=== PATIENT | female | born 1965 | race Caucasian/White ===

== ENCOUNTER 2024-03-14 11:43 | Day surgery (SDC) | payer OTHER, SELFPAY ==
[2024-03-10 09:52] VITALS: BMI 47.0
--- NOTE | 2024-03-13 20:47 | DI.RAD.S_ITS ---
PROCEDURE: XR KNEE LT 1TO2V INDICATIONS: tka TECHNIQUE: 2 view(s) of the knee acquired. COMPARISON: [facility], CR, XR BONE LENGTH SCANOGRAM, 03/03/2024, 13:38. [facility], CR, XR KNEE 4+ VIEWS LEFT, 01/07/2024, 8:05. FINDINGS: Bones: Patient is status post knee joint arthroplasty. Hardware components are in expected positions. Visualized bony structures are intact. Soft tissues: Overlying postoperative changes are noted. IMPRESSION: Expected post-operative appearance of a knee arthroplasty. Dictated by: Bcek Godwin M.D. on 03/14/2024 at 17:38 Approved by: Beck Godwin M.D. on 03/14/2024 at 17:39
[2024-03-14] VITALS (12 sets, daily range): BP systolic 131–177; BP diastolic 31–76; PULSE 60–71; RESP 14–18; TEMP 36.1–36.3; O2SAT 94–98; BMI 47.0
[2024-03-14] MEDS: LACTATED RINGERS 1,000 ML 42 ML IV ×2 (12:42→16:58)
[2024-03-14] MEDS: ACETAMINOPHEN 325 MG TABLET 975 MG PO (12:45)
[2024-03-14] MEDS: MELOXICAM 7.5 MG TABLET 15 MG PO (12:45)
--- NOTE | 2024-03-14 12:52 | PM.PREOP ---
Pre-operative Note Interval Note History & Physical reviewed/Exam performed by Physician: Yes Changes to H&P: No
[2024-03-14] MEDS: CEFAZOLIN VIAL 3 GM in SODIUM CHLORIDE 0.9% 100 ML IV ×2 (13:50→22:04)
[2024-03-14] MEDS: TRANEXAMIC ACID 1,000 MG VIAL 1000 MG INJ ×2 (13:50→15:50)
[2024-03-14] MEDS: ROPIVACAINE/EPI/CLONIDINE/KET 50 ML SYRINGE INJ (14:17)
--- NOTE | 2024-03-14 14:44 | PM.EVENT ---
Event Note Date Patient Seen: 03/14/24 Time Patient Seen: 13:35 Event Note (Rapid Response, Code, or fall): Pt here for L TKA under GA with PMH of asthma (BID albuterol inhaler use - no maintenance inhaler), MACRINA (on CPAP), AVND/SSS/LBBB (s/p DDDR pacemaker placement), HTN, HLD, GERD, hyperparathyroidism, arthritis, DM II, morbid obesity. Last dose eliquis less than 72 hours ago so spinal anesthetic withheld. Pt experienced intraoperative bronchospasm post-induction. Following induction was unable to two-hand mask ventilate with OPA, and was still unable to ventilate once ETT secured despite pre-operative duoneb. Alert for future anesthetics that patient presented with exceptionally reactive airway. Recommend consideration for future inductions to include IV ketamine, LTA lidocaine, and consider RSI as pt likely a difficult mask ventilation however was not able to determine ease of MV as spasm had occurred immediately post-induction. IV epinephrine (10mcg) finally broke spasm, so would also consider having at ready during future anesthetics. Pt never became bradycardic or hypotensive and regained blood oxygenation of 96% 3 minutes post bronchospasm. Please see anesthesia record 03/14/24 for complete event picture.
--- NOTE | 2024-03-14 15:46 | P.OP_ITS ---
Operative Date/Time/Diagnoses Date of procedure: 03/14/24 Pre-op diagnosis: Left knee osteoarthritis Healed left lateral proximal tibia fracture Post-op diagnosis: same Procedure & Clinicians Procedure: Left total knee arthroplasty Same procedure as scheduled: Yes Surgeon: Calixto Hogan Garnett Machine Operator Helper: Carmen Deng Anesthesia Type: General, Peripheral nerve block and Local Operative Notes Estimated Blood Loss (mL): 500 Tourniquet time (min): 8 Procedure in detail: Left CPS Alfonzo Persona Primary Total Knee Arthroplasty Implants: * Size 9 cemented posterior stabilized Femoral Component * Size E Tibial Component with 14 mm x 75 mm stem extension * Size 14 CPS Polyethylene Insert * Unresurfaced Patella Procedure Summary: This 58-year-old female patient was sent to me by an outside surgeon for operative management. She had a BMI of 46 at the time of presentation to me and had sustained a proximal tibia fracture that was treated nonoperatively approximately 5 months before presentation in my clinic. Given her depressed lateral tibial plateau fracture and BMI the outside surgeon recommended referral to a fellowship trained surgeon. In addition to her BMI and fracture she had risk factors including diabetes and atrial fibrillation status post pacemaker placement on Eliquis. Prior to moving forward with any surgical intervention obtained a hemoglobin A1c which was prohibitively high for moving forward with surgery and her blood glucose control was improved with an improved hemoglobin A1c prior to moving forward with surgery. Additionally I planned to hold her blood thinners postoperatively and use prophylactic cefadroxil for PJP prophylaxis after the surgery. I discussed in detail on multiple occasions with the patient that her BMI above 40 places her at risk for complications around the time of surgery, in particular wound breakdown, tibial loosening, and periprosthetic joint infection. The [employer] and [employer] recommends that patients with a BMI above 40 who are otherwise medically optimized not have surgery restricted from them based solely on their BMI and instead recommend a risk sharing model where patients are counseled about their increased risk for complications because of their BMI. The patient understood these increased risks and wished to proceed with surgery. Intraoperatively the tourniquet was only inflated for 8 minutes because it was a venous tourniquet, likely related to the size of the patient's thigh, and once the tourniquet was let down there was less bleeding. I used a werewolf device to control bleeding throughout the procedure given the ineffectiveness of the tourniquet. Today I had measured the depression from her prior tibial plateau fracture at approximately [address] mm on [address] the [address] scan and her long leg scanogram. Based on this I anticipated that by making a 6 mm resection off of her medial side which is her more arthritic side both on this side and on contralateral side I would cut to the bottom of the defect from her prior tibial plateau fracture. This was the case, as there was good bony contact throughout the entire lateral tibia after that 6 mm resection. She had some medial tightness which required a posterior medial release which improved her balanced in extension to symmetric tension between the medial and lateral sides. The gap roller pneumatic balanced with neutral rotation in 90? of flexion and this was pinned in place with a 4 in 1 cutting block. While testing the gap symmetry in flexion with the 4 in [address] there was a snapping sound and the patient developed medial instability. Initially this was only present in flexion but later in the case would also develop in flexion. It appeared that while internally and externally rotating the hip to test gap symmetry in flexion I had iatrogenically torn the MCL. I therefore transitioned to a measured resection technique, cut the femur at 3? of external rotation, and used a CPS insert to increase the medial tightness. Prior to the development of valgus instability I had planned to either use uncemented fixation or stem the tibia because of the patient's BMI and prior fracture. With the additional use of a CPS insert I elected to use a 75 mm stem to maximize stability of the tibial base plate. Following placement of the CPS insert the valgus instability improved in both flexion and extension. Procedure in Detail: This patient was seen preoperatively and evaluated for knee pain which was refractory to numerous nonoperative treatment modalities. Their pain correlated with radiographic changes demonstrating significant degeneration in the knee joint. The risks and benefits of continued nonoperative management versus operative management were discussed at length and all of the patient?s questions were answered. Additional educational materials providing further details beyond our discussion in clinic were provided via a publicly available patient education video which included the incidence of medical complications associated with total knee arthroplasty, reasons for revision following total knee arthroplasty, and patient satisfaction rates following total knee arthroplasty. That video can be accessed at [email or web address] . With this understanding of the risks inherent to the procedure, the patient elected to move forward with operative management. Following preoperative optimization, the patient was scheduled for surgery. The patient was met in the preoperative holding area the day of the procedure and all questions were answered. The patient?s nares were swabbed with betadine in order to decolonize them from MRSA. Informed consent was signed and the left limb was marked with indelible ink.? The patient was brought back to the operating room where anesthesia was induced. The patient was transferred to the operating table and all bony prominences were padded. The operative site was prepped and draped in the usual sterile fashion. A second prep stick was utilized following drape placement. The incision was marked corresponding to the medial aspect of the tibial tubercle and the patella. Ioban was wrapped circumferentially around the knee. Prior to incision, tranexamic acid and cefazolin were administered. Templating images were displayed. A timeout procedure was performed verifying the patient?s identity, medical comorbidities, allergies, relevant medications, anesthesia type and the surgical plan. All present were in agreement. The assistance of a physician permit review assistant was required for positioning, room setup, soft tissue retraction and wound closure. Without this assistance, the procedure would have been significantly more challenging and time consuming.?? The tourniquet was inflated prior to incision. the tourniquet was only inflated for 8 minutes because it was a venous tourniquet, likely related to the size of the patient's thigh, and once the tourniquet was let down there was less bleeding. I used a werewolf device to control bleeding throughout the procedure given the ineffectiveness of the tourniquet. I made an anterior incision over the knee, dissected through the subcutaneous tissues and identified the lateral border of the VMO. Medial and lateral soft tissue flaps were developed. A medial parapatellar arthrotomy was performed ensuring that adequate capsular tissue would remain for closure at the conclusion of the procedure. The hip was brought into extension and the medial soft tissues were released off the joint line of the tibia. Tissue overlying the distal anterior femur was released to allow for later assessment for anterior notching but left in place. A portion of the retropatellar fat pad was excised while protecting the patellar tendon. The patella was everted. The patella was not resurfaced. Osteophytes were excised and a lateral facetectomy was performed. The patella was released from its everted position.?? I flexed the knee to 90 degrees and placed retractors to allow access to the notch. An opening reamer was used to gain access to the femoral canal and an intramedullary nnamdi was introduced into the canal. Diaphyseal fit was obtained in order to allow a distal femoral resection at 5 degrees relative to the anatomic axis, thereby aiming to achieve mechanical alignment of the eventual implant. A +1 resection was planned and assessed using an diogenes wing. I then made the cut using a sagittal saw. This provided additional access to the femoral notch. The ACL and PCL were excised. Retractors were placed on the lateral and medial tibia. I hyperflexed the knee while externally rotating it to sublux the tibia anteriorly. I placed a PCL retractor posteriorly and used this to provide additional anterior subluxation. The remainder of the PCL root was released. An intramedullary reamer was used in the ACL footprint to provide access to the tibial canal. An extramedullary guide was positioned to allow a resection perpendicular to the anatomic and mechanical axes of the tibia, thereby aiming to achieve mechanical alignment of the eventual implant. A +6 resection off the medial tibia was planned to resect down to the base of the prior lateral plateau fracture and the tibial cutting jig was pinned in place. I evaluated the cut depth, varus-valgus alignment and slope of the planned tibial resection and deemed them satisfactory. I cut the tibia with a sagittal saw while using retractors to protect the MCL, patellar tendon, and posterolateral structures.? The knee was repositioned in extension and the Fuzion soft tissue balancing gauge was introduced. This demonstrated that there was more tension medially than laterally. I therefore performed a posterior medial release, releasing capsule off of the posterior aspect of the proximal medial tibia. This improved the symmetry. When 50 pounds of force was applied to the Fuzion device, the extension gap opened to 10 mm. I moved the knee into 90 degrees of flexion, and the Fuzion device was recalibrated by removing a 9 mm harpreet to allow assessment of the flexion gap. The Fuzion was placed perpendicular to the resected surface of the tibia and the resected surface of the distal femur. Fifty pounds of traction was applied to match the tension of the extension gap. This externally rotated the femur to 0 degrees. Pins were placed in the 10 mm holes. The measured resection guide was placed over the pins to allow sizing. Appropriate sizing was determined and a 4-in-1 block was placed. This was double checked using the Fuzion device to ensure that it would open to an equal distance as the extension gap when the same amount of force was applied. The Fuzion block was also used to assess flexion gap symmetry. During this gap symmetry assessment there was an audible pop and the medial flexion space open significantly. Therefore removed the 4 in 1 block and returned to extension to test for the integrity of the MCL and extension. The MCL was intact at that point in the procedure as there was a firm endpoint with valgus stress in extension and the medial and lateral compartments remained balanced. Because of the medial instability in flexion I transitioned to a measured resection CPS technique. I used a 3 degree measured resection guide on the distal femur and set the corresponding 4 in 1 block I had initially been planning to use with a gap balanced technique earlier in the procedure. An diogenes wing was used to ensure there would be no anterior notching. Retractors were placed to protect the soft tissues during resection. Captured cuts were performed with a sagittal saw for the anterior and posterior femur as well as the corresponding chamfers.? Trial components were placed and the construct was assessed. There was now instability in extension in addition to flexion in the medial compartment. While trialing with CPS trials this was improved as the components filled up the box cut. I felt that this would be sufficient to restore stability to the knee. Once satisfied with the construct, I moved forward with implant insertion. Lug holes were drilled in the femur and the tibia was prepped ensuring appropriate sizing and rotation relative to the tibial tubercle.?? The bony ends were irrigated and cement was prepared. Portions of the anterior chamfer cut were utilized as cement restrictors in the femur and tibia where intramedullar rods had been utilized. Cement was placed on the entirety of the undersurface of both the tibial and femoral components. Cement was placed onto the dry tibia and pressurized into the cancellous bone. I impacted the tibial component into place. Cement was removed. The tibia was reduced underneath the femur and placed cement onto the dry surface of the resected femur. I placed the femoral component as well as the intended polyethylene trial. Cement was removed from around the femur. I brought the knee into extension and manually pressurized the construct by pushing on the heel while the cement dried. The knee was bathed in a dilute mixture of betadine and peroxide. A mixture of Ro pivacaine, Epinephrine, Clonidine and Toradol was infiltrated throughout the soft tissues into structures including the VMO, patellar tendon, quadriceps tendon, MCL and femoral periosteum. A low adductor canal block was also performed using this mixture unless one had been placed preoperatively by anesthesia. The knee was copiously irrigated with pulse lavage. Once cement had been allowed to dry the knee was again trialed. Range of motion was assessed by ensuring the knee could achieve full extension and assessing maximum passive knee flexion by elevating the femur and allowing the heel to passively fall towards the buttock. Gap symmetry was assessed by stressing the medial and lateral compartments in both extension and flexion. Laxity was assessed in both extension and flexion and the polyethylene trial was adjusted with shims as necessary. Patellar tracking was assessed with knee flexion. The tourniquet was let down and the polyethylene trial was removed. I inspected the knee inspected for excess cement and any residual bleeding. Once hemostasis was achieved I inserted the final polyethylene and ensured appropriate engagement of the dovetail locking mechanism.?? The arthrotomy was closed with absorbable interrupted suture ensuring that this extended to the top of the arthrotomy. This was backed up with running barbed suture throughout the arthrotomy. The skin was closed with 2-0 and 3-0 sutures. Surgical glue was applied and a soft dressing was placed.?The sponge, instrument and needle counts were reported as being correct at the end of the case.??No obvious complications occurred. The patient was transferred from the operating table back to a stretcher. The patient emerged from anesthesia without difficulty and was taken to the PACU in a stable condition.? Plan for aftercare: * Weightbearing as tolerated * Aspirin 81 twice per day for DVT prophylaxis for the next week at which time we will plan for the patient to resume her baseline dosage of Eliquis * Cefadroxil 500 mg twice per day for 14 days for PJI prophylaxis * Sliding scale insulin while inpatient * Knee immobilizer for 1 week for soft tissue rest given high BMI and valgus in stability * Multimodal pain regimen with no IV opioids ordered * Anticipate discharge home tomorrow * Follow up at [facility] in 1 week with myself on March 28 in our [facility] * Detailed postoperative instructions available at [email or web address]
[2024-03-14] MEDS: INSULIN REGULAR 100 UNIT/ML 3 ML VIAL IV (17:12)
[2024-03-14] MEDS: LACTATED RINGERS 1,000 ML 100 ML IV ×2 (18:41→23:33)
[2024-03-14] MEDS: INSULIN GLARGINE 100 UNIT/ML 3ML PEN 55 UNIT SUBCUT (18:43)
[2024-03-14] MEDS: INSULIN LISPRO 100 UNIT/ML 3ML VIAL SUBCUT ×2 (18:44→21:19)
[2024-03-14] MEDS: ACETAMINOPHEN 325 MG TABLET 650 MG PO ×2 (18:44→23:21)
[2024-03-14] MEDS: glipiZIDE 5 MG TABLET 10 MG PO (20:33)
[2024-03-14] MEDS: OXYCODONE IR 5 MG TABLET PO (20:33)
[2024-03-14] MEDS: ATORVASTATIN 20 MG TABLET PO (20:33)
[2024-03-14] MEDS: ASPIRIN EC 81 MG TABLET PO (20:33)
[2024-03-14] MEDS: DOCUSATE 100 MG CAPSULE PO (20:33)
[2024-03-14] MEDS: PANTOPRAZOLE DR 20 MG TABLET PO (20:33)
[2024-03-14] MEDS: METOPROLOL ER 50 MG TABLET PO (20:34)
--- NOTE | 2024-03-14 23:37 | RT ---
Patients own home CPAP set up. Patient will place self on and off as needed.
[2024-03-15] VITALS: BP 125/39; PULSE 60; RESP 18; TEMP 35.6; O2SAT 94
[2024-03-15 04:00] VITALS: BP 122/53; PULSE 66; RESP 18; TEMP 36.1; O2SAT 92
[2024-03-15 04:58] LABS: Hematocrit 27.7 % (36-46); Hemoglobin 9.1 g/dL (12.0-16.0)
[2024-03-15] MEDS: ACETAMINOPHEN 325 MG TABLET 650 MG PO ×2 (04:58→11:48)
[2024-03-15] MEDS: CEFAZOLIN VIAL 3 GM in SODIUM CHLORIDE 0.9% 100 ML IV (05:00)
--- NOTE | 2024-03-15 07:43 | PM.PNPO.1 ---
Subjective Subjective Date Patient Seen: 03/15/24 Time Patient Seen: 07:43 Interval history: Patient's pain is moderate. Denies fever or chills. No nausea or vomiting. Patient has been out of bed to use bedside commode. Patient has not mobilize with physical therapy. Patient has her home to assist her. She does have 2-3 steps into her house. Exam Vital Signs (past 8 hours): - 03/15/24 00:00 03/15/24 04:00 Temperature 96.1 F L 96.9 F L Pulse Rate 60 66 Respiratory Rate 18 18 Blood Pressure 125/39 L 122/53 L Pulse Oximetry 94 92 Oxygen Flow Rate 0 0 Oxygen Delivery Method Nasal Cannula Oxygen Flow Rate 0 Narrative Exam Narrative: 58-year-old female resting comfortably in bed in no apparent distress. Dressing is clean, dry and intact. Motor functions intact bilateral lower extremities. Sensation grossly intact to light touch bilateral lower extremities. Const General: cooperative Nutritional Appearance: obese (BMI 47) Orientation: alert Resp Effort & Inspection: normal respiratory effort and able to speak in complete sentences Objective Labs 03/15/24 04:28 Labs: Laboratory Results - last 24 hr 03/15/24 04:28 Hgb 9.1 L Hct 27.7 L PFSH Medical History (Updated 03/10/24 @ 14:36 by Mirtha Rodriguez RN) Hyperparathyroidism Goiter, nontoxic, multinodular Hx of pancreatitis Depression Easy bruisability Goiter Diabetes Gastroparesis GERD (gastroesophageal reflux disease) Paroxysmal A-fib HLD (hyperlipidemia) HTN (hypertension) Asthma MACRINA on CPAP Left bundle branch block (LBBB) Pacemaker (06/03/18) Surgical History (Updated 03/10/24 @ 10:19 by Mirtha Rodriguez RN) History of surgical removal of ganglion cyst History of History of tonsillectomy History of hysterectomy Social History household members: spouse Smoking Status: Never smoker alcohol intake: former Assessment & Plan Post-op Postoperative Procedures: Procedures Operation Date: 03/14/24 13:15 Actual Procedure Side Surgeon p Total Knee Arthroplasty Left Calixto Hogan MD Postoperative day: 1 Postoperative status narrative: Stable status post left total knee arthroplasty, anemia due to blood loss during surgery Postoperative plan narrative: Weight-bearing as tolerated Aspirin 81 mg b.i.d. for DVT prophylaxis x1 week and then will resume her baseline dosage of Eliquis Cefadroxil 500 mg b.i.d. for 14 days for postop prophylaxis Knee immobilizer for 1 week for soft tissue rest given high BMI and valgus instability Multimodal pain management Patient will mobilize with physical therapy this morning possible discharge home later today or tomorrow. Quality VTE Deep Vein Thrombosis/Pulmonary Embolism Present on Admission: No
[2024-03-15 08:00] VITALS: BP 119/35; PULSE 60; RESP 18; TEMP 35.9; O2SAT 95
[2024-03-15] MEDS: METOPROLOL ER 50 MG TABLET PO (08:04)
[2024-03-15] MEDS: PANTOPRAZOLE DR 20 MG TABLET PO (08:04)
[2024-03-15] MEDS: OXYCODONE IR 5 MG TABLET PO ×3 (08:05→15:10)
[2024-03-15] MEDS: glipiZIDE 5 MG TABLET 10 MG PO (08:05)
[2024-03-15] MEDS: ASPIRIN EC 81 MG TABLET PO (08:05)
[2024-03-15] MEDS: DOCUSATE 100 MG CAPSULE PO (08:05)
[2024-03-15] MEDS: INSULIN LISPRO 100 UNIT/ML 3ML VIAL 12 UNIT SUBCUT ×2 (08:06→11:48)
[2024-03-15] MEDS: INSULIN LISPRO 100 UNIT/ML 3ML VIAL SUBCUT ×2 (08:06→11:48)
[2024-03-15] MEDS: VENLAFAXINE ER 75 MG CAP 150 MG PO (08:09)
[2024-03-15] MEDS: POTASSIUM CHLORIDE 10 MEQ TAB PO (08:09)
--- NOTE | 2024-03-15 09:40 | PT.IIE ---
Current Diagnoses Unilateral primary osteoarthritis, left knee (03/14/24) Presence of unspecified artificial knee joint (03/14/24) Surgery Performed Operation Date: 03/14/24 13:15 Actual Procedures p Total Knee Arthroplasty(Left) - Calixto Gil MD Surgical History (Last Updated 03/15/24 @ 10:54 by Ricardo Ledezma PA-C) History of History of hysterectomy History of surgical removal of ganglion cyst History of tonsillectomy S/P total knee arthroplasty Medical History (Last Updated 03/10/24 @ 14:36 by Mirtha Rodriguez RN) Asthma Depression Diabetes Easy bruisability Gastroparesis GERD (gastroesophageal reflux disease) Goiter Goiter, nontoxic, multinodular HLD (hyperlipidemia) HTN (hypertension) Hx of pancreatitis Hyperparathyroidism Left bundle branch block (LBBB) MACRINA on CPAP Pacemaker (06/03/18) Paroxysmal A-fib Physical Therapy Inpatient Evaluation/Re-Eval M1 PT/OT-IP Prior Functional Status Start: 03/15/24 14:44 Freq: NEEDED Status: Active Protocol: Document 03/15/24 09:40 AB (Rec: 03/15/24 15:07 AB [id number]) Medical Review Prior Functional Status Medical History Reviewed Yes Communication able to make needs known Mobility and Gait pt stated that she was modified independent with all mobilities and ambulation using SPC indoors and uses a 4WW for outdoor mobility Social History Household Members spouse Living Arrangements House Number of Floors (Floors) 3 or More Floors Number of Stairs To Enter/Railing? has 2 steps L rail ascending to enter and pt will stay on main level of the house Home Environment High Toilet,Walk in Shower Home Equipment Front Wheel Walker,Four Wheel Walker,Straight Cane,Grab Bars Near Toilet,Grab Bars In Shower Additional Social History Comment pt has an adjustable bed with R side rail M2 PT-IP Current Condition Start: 03/15/24 14:44 Freq: NEEDED Status: Active Protocol: Document 03/15/24 09:40 AB (Rec: 03/15/24 15:07 AB [id number]) Physical Therapy Current Condition Current Condition Evaluation Date 03/15/24 Treatment Diagnosis s/p L TKA; difficulty in walking Onset Date 03/14/24 M3 PT-IP Subjective Start: 03/15/24 14:44 Freq: NEEDED Status: Active Protocol: Document 03/15/24 09:40 AB (Rec: 03/15/24 15:07 AB [id number]) Subjective Physical Therapy Visit Type Type Initial Evaluation Visit Start Time 09:40 Visit Stop Time 12:25 Notes pt seen for split visits: 940am to 1055 and 1150 to 1225 Number of BOX TOE CUTTER Visits 0 Physical Therapy Visit Comments Patient Comments agreeable to do PT Therapy Pain Assessment Pain When Pain Assessed At Rest Pain Present Pain Present Pain Reported Location Left Knee Intensity 5 Scale Used Numeric (0 - 10) Pain Management Techniques Distraction,Modification of Treatment,Re-positioning, Timing of Activity with Medications M4 PT-IP Mobility and Gait Start: 03/15/24 14:44 Freq: NEEDED Status: Active Protocol: Document 03/15/24 09:40 AB (Rec: 03/15/24 15:07 [id number]) PT-Bed Mobility Assessment Supine to Sit Supine to Sit Standby Assistance Sit to Supine Sit to Supine Standby Assistance PT-Transfer Assessment Sit to and From Stand Sit to and from Stand Standby Assistance,Contact Guard Assistance,1 Person Assistance,Use of Upper Extremities Equipment Transfer Assistive Device Gait Belt,Front Wheeled Walker Orthotic/Prosthetic Devices or Brace: No Transfers Transfer Destination Bed,Chair Transfer Technique ambulated Transfer Ability Level of Assist Standby Assistance,Contact Guard Assistance,1 Person Assistance,Use of Upper Extremities Comments Mobility Comments PT eval received and EMR reviewed. per ortho MD operative note: knee immobilizer on LLE for ~ 1 week. No orders for knee immobilizer wear times/ parameters. checked on pt and pt sitting on the chair but without immobilizer on. pt sitting by [facility]. asked pt regarding her knee immolizer and does not know anything about it. attempted to seda knee immobilizer on and it does not fit pt. went to find a better fit immobilizer but unsuccessful. Feedback rep onsite and stated that they don't have and wider size but pt can be a hinged brace that will fit better. informed LALA ledezma to put in new order for hinged knee brace and will just be lock in extension. PA agreed. also asked to put in order for wear times/protocol. per spouse, stated that Dr. gil informed them that pt should not bend her knee but no orders found. talked with LALA ledezma to clarify ROM. PA contacted Dr. gil and informed PT that pt is not allowed to do ROM/flexion and to have knee immobilizer when OOB. pac-med rep fitting pt with hinged knee brace. informed pt regarding knee brace wear time and knee precautions. pt understood. pt completed sit to stand from chair CGA and ambulated in room CGA ~ 20 ft and assessed for proper fit of the knee brace. pt sat back on chair. positioned on chair . call light and table placed within reach. came back to checked on pt after doing another brace fitting with another pt. pt agreed to do PT. clarified knee precautions and use of knee brace again. pt understood. pt completed sit to stand from chair SBA to CGA and step transfer to bed using fWW CGA. completed sit <>supine SBA. pt step transfer back to chair using FWW SBA. Caregiver training conducted. educated spouse on how to use safety belt and how to assist pt. spouse was able to put safety belt on pt and assisted pt with sit to stand. spouse was able to ambulate pt in the hallway using FWW CGA. stair climbing training. PT educated and demonstrated to pt on how to complete stair climbing. educated spouse on how to assist pt with stair climbing. pt completed up/ down steps holding on to L rail with B hands min A and cues and spouse was able to assist pt with stair climbing. assisted pt back to her room. pt ambulated from w/c to chair using FWW SBA. positioned pt on the chair. call light and table placed within reach. Gait Assessment Gait Gait Assistance Required: Standby Assistance,Contact Guard Assist Distance (Feet) 75 Able to Maintain Weight Bearing Status Yes During Gait Assistive Devices Assistive Device Gait Belt,Front Wheeled Walker Orthotic/Prosthetic Devices or Brace: No Gait Deviations General Gait Pattern Antalgic,Decreased Stride Length,Decreased Feet Clearance,Step-to Gait Factors Limiting Gait Function Factors Limiting Gait Function Decreased Activity Tolerance, Decreased Strength,Limited Range of Motion,Pain,Poor Balance,Poor Safety Awareness Stair Climbing Assessment Evaluation Level of Assist On Stairs Minimal Assistance,1 Person Assistance Devices Stair Climbing Assistive Devices Left Railing Technique/Endurance Stair Climbing Direction Ascend and Descend Stair Climbing Technique Step to Step Number of Steps Climbed 3 Query Text: Stair Climbing Set # Repetitions (reps) 1 PT-Balance Assessment Sitting Balance and Reactions Static Sitting Balance Ability Normal Dynamic Sitting Balance Ability Good Standing Balance and Reactions Static Standing Balance Ability Fair Dynamic Standing Balance Ability Fair Device Used FWW M5 PT-IP Objective Assessments Start: 03/15/24 14:44 Freq: NEEDED Status: Active Protocol: Document 03/15/24 09:40 AB (Rec: 03/15/24 15:07 AB [id number]) Orientation Orientation/Cognition Level of Alertness Alert Orientation Name,Place,Situation Safety Awareness Decreased Safety Awareness Memory Description No Deficits Noted Gross Range of Motion Lower Extremity ROM Impairments L knee NT: no ROM precaution Strength Lower Extremity Strength Assessment Left Impaired Hip 3+/5 Coordination Assessment Gross Coordination Gross Coordination WNL Sensation Assessment Sensation Gross Sensation WNL Muscle Tone Muscle Tone WNL Yes M6 PT-IP Treatment Start: 03/15/24 14:44 Freq: NEEDED Status: Active Protocol: Document 03/15/24 09:40 AB (Rec: 03/15/24 15:07 AB [id number]) Physical Therapy Treatment Education Education Provided Precautions,Weight Bearing Status,Post-Op Packet,Safety M7 PT-IP Assessment and Plan Start: 03/15/24 14:44 Freq: NEEDED Status: Active Protocol: Document 03/15/24 09:40 AB (Rec: 03/15/24 15:07 AB [id number]) PT Summary Assessment and Plan Potential Rehabilitation Potential Fair Status of Condition at Evaluation Stable Summary Impairments Pain,ROM,Strength,Balance, Coordination,Sensation,Tone, Cognition,Bed Mobility, Transfers,Gait,Activity Tolerance Assessment Summary pt is a 58 y/o F s/p L TKA. pt is WBAT on LLE and has knee brace on locked in extension. No ROM per PA. pt requiring SBA to CGA with mobility using FWW. caregiver training conducted and spouse was able to assist pt with mobility. pt plans to go home today and may go home when medically stable. Goals Bed Mobility Goal Independent Transfer Goal Independent,Front Wheeled Walker Gait Goal Independent,Front Wheel Walker Gait Distance 150 Other Goals up/down 2 steps L rail ascending SBA Days to Meet Goals 5 Frequency of Treatment Frequency Of Treatment Twice a Day Treatment Plan Physical Therapy Treatment Plan Bed Mobility Training,Transfer Training,Gait Training, Therapeutic Exercise,Balance Retraining,Post Op Education, Discharge Planning,Hot or Cold Pack,Neuromuscular Re-ed, Coordination Retraining,Manual Therapy Precautions Brace L knee hinged brace locked in extension Weight Bearing Status Weight Bearing Status Weight Bear as Tolerated Allowed Weight Bearing Amount (enter % LLE WBAT or #) (%) Recommendations To Nursing Amount of Assist Needed 1 Person Assist Discharge Recommendations PT Discharge Recommendations Home with Assistance, Outpatient PT Transportation Needs at Discharge Private Vehicle
[2024-03-15 11:21] VITALS: PULSE 78; RESP 18; O2SAT 97
[2024-03-15] MEDS: ALBUTEROL 2.5 MG/3 ML NEB (ADULT) INH (11:21)
--- NOTE | 2024-03-15 13:33 | OT.IPNOTE ---
Attempted OT eval and pt states has no OT need. Pt states a supportive to assist and all OT equipment needs. Discharge pt from OT services.
--- NOTE | 2024-03-15 14:42 | P.DS_ITS ---
History of Present Illness History of Present Illness Date Patient Seen: 03/15/24 Time Patient Seen: 14:42 Chief complaint: Left TKA*OPB* Narrative: See progress note Discharge Providers Provider Discharge Date: 03/15/24 Primary care physician: Max Zendejas MD Consults: 03/13/24 20:46 Consult to Anesthesiology Routine Comment: Consulting Provider: Anesthesiologist Reason for consultation: Regional block for post operative pain control 03/14/24 17:31 Consult to Discharge Planning Routine Comment: Consult to Occupational Therapy Evaluate & Treat Comment: Physician Instructions: Evaluate and treat Consult to Physical Therapy Evaluate & Treat Comment: Physician Instructions: postop TKA protocol 03/15/24 10:52 Consult to Physical Therapy Evaluate & Treat Comment: Fit with a hinged knee brace, locked in extension Physician Instructions: Evaluate and Treat, knee brace to be locked in ext Discharge provider: Ricardo Diane PA-C Summary Hospital Course Discharge Diagnosis: Left knee osteoarthritis, healed left lateral proximal tibia fracture Hospital Course: Left total knee arthroplasty Same procedure as scheduled: Yes Surgeon: Calixto Hogan Country Printer: Carmen Deng Anesthesia Type: General, Peripheral nerve block and Local Operative Notes Estimated Blood Loss (mL): 500 Tourniquet time (min): 8 Procedure in detail: Left CPS Alfonzo Persona Primary Total Knee Arthroplasty Implants: * Size 9 cemented posterior stabilized Femoral Component * Size E Tibial Component with 14 mm x 75 mm stem extension * Size 14 CPS Polyethylene Insert * Unresurfaced Patella Patient admitted to the hospital for the above-mentioned procedure. Patient consented to the same. Patient underwent left total knee arthroplasty March 14, 2024. Patient back in her room recovering well as in stable condition. Patient has worked with physical therapy. Patient has assistance at home. Patient will be weight-bearing as tolerated. Patient was dispensed a hinged knee brace to be locked in full extension while weight-bearing may remove the brace while resting. No no active or passive range of motion for 1 week. She will be on aspirin 81 mg b.i.d. for DVT prophylaxis x1 week and then she may resume her baseline doses of Eliquis. She will be on ceftriaxone 500 mg b.i.d. times 14 days. Multimodal pain management. Follow up in 1 week outpatient orthopedic clinic. Discharge home today in stable condition. Status at Discharge Cognitive/behavioral status at discharge: at baseline, oriented Functional status at discharge: uses cane/walker Overall status at discharge: patient is progressing back to baseline Exam Vital Signs (past 8 hours): - 03/15/24 08:00 03/15/24 08:00 03/15/24 11:21 Temperature 96.6 F L Pulse Rate 60 78 Respiratory Rate 18 18 Blood Pressure 119/35 L Pulse Oximetry 95 97 Oxygen Delivery Method Room Air Room Air Oxygen Flow Rate 0 0 Fraction of Inspired Oxygen 21 Fraction of Inspired Oxygen 21 SaO2/FiO2 Ratio 461 Oxygen Delivery Method Room Air Oxygen Flow Rate 0 Narrative Exam Narrative: See progress note Objective Labs 03/15/24 04:28 Labs: Laboratory Results - last 24 hr 03/15/24 04:28 Hgb 9.1 L Hct 27.7 L PFSH Medical History (Updated 03/10/24 @ 14:36 by Mirtha Rodriguez RN) Hyperparathyroidism Goiter, nontoxic, multinodular Hx of pancreatitis Depression Easy bruisability Goiter Diabetes Gastroparesis GERD (gastroesophageal reflux disease) Paroxysmal A-fib HLD (hyperlipidemia) HTN (hypertension) Asthma MACRINA on CPAP Left bundle branch block (LBBB) Pacemaker (06/03/18) Surgical History (Updated 03/15/24 @ 10:54 by Ricardo Diane PALam) S/P total knee arthroplasty History of surgical removal of ganglion cyst History of History of tonsillectomy History of hysterectomy Social History household members: spouse Smoking Status: Never smoker alcohol intake: former Discharge Assessment & Plan Assessment and Plan Assessment: Patient progressing as expected Plan of Treatment: Weightbearing as tolerated, hinged knee brace to be locked in full extension when weight-bearing. May remove brace while resting no active or passive range of motion surgical knee. Aspirin 81 mg b.i.d. for 1 week then may resume her baseline dose of Eliquis Routine wound care Multimodal pain management Cefadroxil 500 mg b.i.d. times 14 days Follow up outpatient ortho in 1 week Discharge home today in stable condition. Discharge Plan Discharge orders & Medications Discharge Orders: Discharge (Order); Ordered 03/15/24 Ordered By: Ricardo Diane Prescriptions: New acetaminophen 325 mg Tablet 650 mg PO Q6H Qty: 60 0RF polyethylene glycol 3350 17 gram Powder In Packet 17 gm PO DAILY PRN (Reason: Constipation) Qty: 10 0RF aspirin 81 mg Tablet,Delayed Release (Dr/Ec) 81 mg PO BID Qty: 14 0RF oxycodone 5 mg Tablet 5 mg PO Q3H PRN (Reason: Pain, Severe (7-10)) Qty: 40 0RF cefadroxil 500 mg capsule 500 mg PO BID Qty: 28 0RF Continued atorvastatin 20 mg Tablet 20 mg PO QPM torsemide 20 mg Tablet 20 mg PO QAM metoprolol succinate 50 mg Tablet Extended Release 24 Hr 50 mg PO BID lisinopril 20 mg Tablet 20 mg PO BID glipizide 10 mg Tablet 10 mg PO BID potassium chloride 10 mEq Tablet Extended Release 10 meq PO DAILY albuterol sulfate 90 mcg/actuation Hfa Aerosol Inhaler 2 puff INHALATION BID insulin lispro [Humalog KwikPen Insulin] 100 unit/mL Insulin Pen 60 unit SUBCUT TID insulin glargine [Basaglar KwikPen U-100 Insulin] 100 unit/mL (3 mL) Insulin Pen 70 unit SUBCUT QPM omeprazole 20 mg Tablet,Delayed Release (Dr/Ec) 20 mg PO BID venlafaxine 150 mg Tablet Extended Release 24hr 150 mg PO QAM omeprazole 20 mg capsule,delayed release(DR/EC) 20 mg PO BID Discontinued acetaminophen 500 mg Capsule 1,000 mg PO DAILY PRN (Reason: Pain) Eliquis 5 mg Tablet 5 mg PO BID Follow up/Referrals: Max Zendejas MD [Primary Care Provider] - Calixto Hogan MD [Physician] - 03/28/24 11:00 am (Follow up w/ ANASTACIO Telles, at [facility] in [place].) Diet/Activity/Treatments Diet: Diet as Tolerated Activity: Weightbearing as tolerated. Walk frequently! Cold/Heat Therapy: Ice to knee as needed for pain. Other treatments: Patient will be on aspirin 81 mg twice daily for 1 week and then will restart her baseline dosage of Eliquis, cefadroxil 500 mg twice daily for 14 days, knee immobilizer for 1 week, no range of motion in order to rest tissue postoperatively. Skin/Wound/Dressing Care Report to your healthcare provider any signs of infection, such as:: chills, fever, night sweats, unusual drainage and unusual redness Dressing: May remove CARLOS wrap and shower on 03/17/2024. Leave dressing in place until follow up in office. No bathing or otherwise soaking incision. Call the office if the dressing becomes saturated inside. Visit Report/Discharge Packet Instructions: DI for Knee Replacement, DI for Prescription Opioid Use Stand Alone Forms: Patient Portal/API, Surgery Discharge Discharge Data Primary Care Provider: Max Zendejas Attending Provider: Calixto Hogan VTE Deep Vein Thrombosis/Pulmonary Embolism Present on Admission: No
--- NOTE | 2024-03-15 15:55 | CM.DANOTE ---
DCP Assessment Note brief Pt is a 58yo F here with planned left knee surgery with Dr. Hogan on 03/14/24. Pt is POD1. PCP Max Dey and self pay CROCHETER reviewed EMR. Pt lives with spouse in [facility] at baseline, uses a walker. Per PT, rec home with assistance. Pt's spouse has been bedside all day. Per RN, supportive spouse, have equip they need at home, no CM/DCP needs. Pt left prior to being seen by this CROCHETER. P: home with spouse today, no identified barriers to safe return home. CM team will follow as needed FARAZ Guo Discharge Planning/Care Management Advanced directive, confirm from FAMILY Start: 03/14/24 17:42 Freq: Q24H Status: Active Protocol: Document 03/14/24 17:42 MM (Rec: 03/14/24 19:00 MM [id number]) Advance Directive, confirm on record Time 18:59 Person contacted pt Copy received No CM Discharge Assessment Start: 03/15/24 15:52 Freq: Status: Active Protocol: Document 03/15/24 15:52 SL (Rec: 03/15/24 15:54 SL [id number]) Discharge Planning Assessment Assigned Maintenance Worker Municipal FARAZ Corona DPOA/Assigned Designee Name Spouse Advance Directives? Yes Advance Directives on File No History Provided By Patient Prior Living Arrangements House Household Members spouse Type of transporation used prior to Drives own vehicle admit Independent with ADL's Yes Is patient alert and oriented? Yes DME Already Rented / Owned FWW / Walker Discharge Plan Home Transportation Arrangement spouse Referrals Initiated None needed Whiteboard Updated in Patient Room with No name and ext. # of Maintenance Worker Municipal Review Status In Process Please Provide Date Initial DC 03/15/24 Assessment Was Performed Next Review Type Continued Stay Review Pre-Anesthesia Assessment Start: 03/10/24 09:52 Freq: Status: Active Protocol: Document 03/10/24 09:52 CAB (Rec: 03/10/24 10:38 CAB [id number]) Pre-Anesthesia Assessment Patient Information Reviewed Via Phone Assessment Assessment Completed With Patient Diagnostic Results BMP/CMP,CBC,EKG Comment Outside labs/EKG Primary Care Provider Max Zendejas Comment Pre-op 01/20/24 scanned and in surgery folder Seen Specialist in Last 12 Months Yes Specialist Seen Staffing Executive,Long Term Care Pharmacist, Orthopedist Comment Endocrinology visit scanned Primary Language Syriac Safety Equipment Tester Required No Height 170.18 cm Weight 136.078 kg Body Mass Index (BMI) 47.0 Hearing Ability Normal Visual Assist Glasses Dentition Type Teeth, Natural Present Barriers to Learning Visual Hx Anesthesia Reactions No Hx Family Anesthesia Reaction No Hx Malignant Hyperthermia No Hx Blood Transfusions No Anesthesia Review Requested No Sugar Cane Grower No alcohol intake former Smoking Status Never smoker Substance Use Type does not use Pain Present Pain Reported Musculoskeletal Symptoms Abnormal Gait,Difficulty Walking,Joint Pain History of Falling (Recent or History of No ) Patient is completely paralyzed or No completely immobile Prosthesis or Orthotic Device Cane,Front Wheel Walker Mental Status Oriented to own ability Is patient on oxygen? No Does patient have GILES/SOB No Hx Sleep Apnea Yes CPAP/BIPAP use prescribed and used routinely Will Bring CPAP/BIPAP DOS Yes Currently Taking a Beta Malini Yes: Metoprolol Hx Chest Pain No Hx SOB No Hx Syncope or Dizziness No Anti-Coagulant Therapy Yes: Eliquis-advised to hold 1 day prior per Cardiology Has a Staffing Executive Yes Staffing Executive name [facility] Cardiac Testing No Hx Pacemaker/ICD Yes Pacemaker Rep Required? No: Pacer form scanned and in surgery folder Cardiac Clearance Received No Comment Called for cardiac recs, none identified after 2019 other than pacer check Diet Type At Home Regular Dysphagia No Gastrointestinal Symptoms Reflux Comment Hx gastroparesis Chronic UTI No Urinary Catheter Present No Hx Urinary Self Catheterization No Diabetes Yes HgbA1C 7.4 Date 02/20/24 Patient No Lactating No Hx Drug Resistant Organism No Presence of External or Internal Medical Yes: CPAP, Dexcom glucose Devices monitor Marital Status Lives With spouse Current Living Arrangements House Number of Floors (Floors) Two Floors Support System Spouse Does the Patient Have Assistance After Yes Surgery Patient Discharge Plan Description Return Home Comment Pt advised overnight length of stay per surgeon Feels Safe in Current Environment Yes Been Physically Hurt or Threatened By a No Person in Current Environment Do you have thoughts of harming yourself None or others? Are you currently considering suicide? No Do you have a plan to hurt yourself or No Plan others? Do You Have Any Spiritual Beliefs That No May Affect Your HC Choices? Do You Have Any Cultural Practices That No May Affect Your HC Choices? Comment Reilly Who Can We Speak to About Patient's Care Family, friends Identifying Code for Release of Patient Declines to issue Information Health Care Proxy/Next of Kin Kamar () Health Care Proxy Emergency Contact Name Kamar () Emergency Contact Advance Directives? Yes Advance Directives on File No Requested Patient Bring Advanced Yes Directives DOS Power of Labor Expediter Yes Power of Labor Expediter Name Kamar () Power of Labor Expediter PAC Instructions Bring CPAP/BIPAP,Diabetes instructions,Do not shave/clip surgical site,Durable medical equipment,Medications to take /avoid,Nasal antibiotic,No ETOH/petroleum product on skin DOS,NPO,Pre-surgical wash, Sensory aids,Sturdy shoes/ comfortable clothes,Do not bring valuables and remove jewelry
== END 2024-03-15 15:57 | disposition home or self-care (01) ==
LOC: OR 11:46 → AC 11:47
PROVIDERS: PCP Family Medicine; Referring Provider Orthopaedic Surgery Sports Medicine; Visit Provider Orthopaedic Surgery Adult Reconstructive Orthopaedic Surgery
PROC: 0SRD0JZ Replacement of Left Knee Joint with Synthetic Substitute, Open Approach (ICD-10-PCS; CPT 27447; principal; 2024-03-14 13:15)
DX: M17.12 Unilateral primary osteoarthritis, left knee (principal); E66.01 Morbid (severe) obesity due to excess calories; J45.909 Unspecified asthma, uncomplicated; Z95.0 Presence of cardiac pacemaker; I10 Essential (primary) hypertension; Z68.42 Body mass index [BMI] 45.0-49.9, adult; E11.9 Type 2 diabetes mellitus without complications; Z79.01 Long term (current) use of anticoagulants; G47.33 Obstructive sleep apnea (adult) (pediatric); M25.762 Osteophyte, left knee; Z79.84 Long term (current) use of oral hypoglycemic drugs; Z79.4 Long term (current) use of insulin
CPT/HCPCS: 27447; 36415; 73560; 82962; 85014; 85018; 94640; 97161; 97530; C1776; J0690; J1100; J1170; J1815; J2405; J2704; J3010; J7613